=== PATIENT | male | born 1985 | race Caucasian/White ===

== ENCOUNTER 2018-01-26 04:19 | Emergency (ER) | payer OTHER, BC ==
[2018-01-26 04:28] VITALS: TEMP 98
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
[2018-01-26 05:22] VITALS: BP 140/63; PULSE 71; RESP 18
[2018-01-26 05:48] VITALS: O2SAT 99
[2018-01-26] MEDS ORDERED: Naproxen 500 MG TAB PO ONE (11:16)
== END 2018-01-26 05:30 ==
LOC: H.ER 04:19
DX: M25.539 Pain in unspecified wrist